=== PATIENT | male | born 1960 | race Two or more races ===

== ENCOUNTER 2018-08-07 08:49 | Emergency (ER) | payer OTHER ==
[~2018-08-07] VITALS: Ht 175.3 cm; Wt 81.2 kg
[~2018-08-07 08:49] MED LIST: KETO10TA2 PO; TAMS0.4C PO
[2018-08-07] MEDS ORDERED: IBUPROFEN800 MG PO (12:46)
== END 2018-08-07 14:10 | disposition home or self-care (01) ==
LOC: ER 08:49
DX: S59.811A Other specified injuries right forearm, initial encounter (principal); W18.39XA Other fall on same level, initial encounter; Y93.89 Activity, other specified; Y92.89 Other specified places as the place of occurrence of the external cause; Y99.8 Other external cause status